=== PATIENT | male | born 1940 | race Caucasian/White ===

== ENCOUNTER → 2016-10-31 | Outpatient (CLI) | payer OTHER, MEDICARE ==
[2016-10-31 12:38] LABS: BASO % 0.4 %; BASO ABS # 0.02 K/uL (0-0.2); COMPLETE YES; EOS % 1.1 %; HEMATOCRIT 44.9 % (42-52); IG% 0.4 %; LYMPH % 30.3 %; LYMPH ABS # 1.35 K/uL (1.2-3.4); MEAN CELL VOLUME 91.3 fL (80-100); MEAN CORPUSCULAR HEMOGLOBIN 31.9 pg (25-34); MEAN PLATELET VOLUME 10.1 fL (7.4-10.4); MONO % 13.5 %; NEUT % 54.3 %; PLATELET COUNT 162 K/uL (130-400); RED BLOOD COUNT 4.92 M/uL (4.7-6.1); WHITE BLOOD COUNT 4.46 K/uL (4.8-10.8)
[2016-10-31 12:45] LABS: ALT/SGPT 21 U/L (12-78); BLOOD UREA NITROGEN 18 mg/dl (7-18); BUN/CREATININE RATIO 16.5 (10-20); CALCIUM 8.7 mg/dl (8.5-10.1); CARBON DIOXIDE 27 mmol/L (21-32); CHLORIDE 107 mmol/L (98-107); CHOLESTEROL 184 mg/dl (0-200); GLUCOSE 89 mg/dl (70-99); POTASSIUM 4.6 mmol/L (3.5-5.1); SODIUM 142 mmol/L (136-145)
[2016-10-31 12:48] LABS: ALKALINE PHOSPHATASE 60 U/L (45-117); AST/SGOT 19 U/L (15-37); CHOLESTEROL/HDL RATIO 3.3; HDL CHOLESTEROL 56 mg/dl; LDL CHOLESTEROL CALCULATED 113 mg/dl; TRIGLYCERIDES 74 mg/dl (0-150); VERY LOW DENSITY LIPOPROT CALC 15 mg/dl
== END | disposition home or self-care (01) ==
LOC: C.LABBFT 08:00
PROVIDERS: ATTEND Nurse Practitioner Family
DX: I65.29 Occlusion and stenosis of unspecified carotid artery (principal); I10 Essential (primary) hypertension; I34.0 Nonrheumatic mitral (valve) insufficiency; E78.5 Hyperlipidemia, unspecified; I07.1 Rheumatic tricuspid insufficiency

== ENCOUNTER → 2017-04-28 | Outpatient (CLI) | payer OTHER, MEDICARE ==
[2017-04-28 12:37] LABS: BLOOD UREA NITROGEN 21 mg/dl (7-18); BUN/CREATININE RATIO 18.9 (10-20); CALCIUM 9.1 mg/dl (8.5-10.1); CARBON DIOXIDE 30 mmol/L (21-32); CHLORIDE 105 mmol/L (98-107); CHOLESTEROL 208 mg/dl (0-200); GLUCOSE 85 mg/dl (70-99); POTASSIUM 4.3 mmol/L (3.5-5.1); SODIUM 139 mmol/L (136-145)
[2017-04-28 12:40] LABS: CHOLESTEROL/HDL RATIO 4.3; HDL CHOLESTEROL 48 mg/dl; LDL CHOLESTEROL CALCULATED 143 mg/dl; TRIGLYCERIDES 85 mg/dl (0-150); VERY LOW DENSITY LIPOPROT CALC 17 mg/dl
== END | disposition home or self-care (01) ==
LOC: C.LABBFT 08:22
PROVIDERS: ATTEND Nurse Practitioner Family
DX: I65.29 Occlusion and stenosis of unspecified carotid artery (principal); I10 Essential (primary) hypertension; E78.5 Hyperlipidemia, unspecified; I34.0 Nonrheumatic mitral (valve) insufficiency; I07.1 Rheumatic tricuspid insufficiency

== ENCOUNTER → 2018-05-04 | Outpatient (CLI) | payer OTHER, MEDICARE ==
[2018-05-04 13:39] LABS: ALBUMIN 3.5 gm/dl (3.4-5.0); ALKALINE PHOSPHATASE 55 U/L (45-117); ALT/SGPT 24 U/L (12-78); AST/SGOT 23 U/L (15-37); BLOOD UREA NITROGEN 20 mg/dl (7-18); CALCIUM 8.7 mg/dl (8.5-10.1); CARBON DIOXIDE 27 mmol/L (21-32); CHOLESTEROL 176 mg/dl (0-200); CREATININE 1.13 mg/dl (0.60-1.40); GLUCOSE 89 mg/dl (70-99); LDL CHOLESTEROL CALCULATED 116 mg/dl; POTASSIUM 4.5 mmol/L (3.5-5.1); SODIUM 140 mmol/L (136-145); TOTAL PROTEIN 6.8 gm/dl (6.4-8.2)
== END | disposition home or self-care (01) ==
LOC: C.LABBFT 07:33
PROVIDERS: ATTEND Nurse Practitioner Family
DX: I65.29 Occlusion and stenosis of unspecified carotid artery (principal); I10 Essential (primary) hypertension; E78.5 Hyperlipidemia, unspecified; I38 Endocarditis, valve unspecified

== ENCOUNTER 2023-12-02 19:23 | Inpatient (IN) ==
[2023-12-02] MEDS: DEXAMETHASONE SOD INJ 4 MG/ML VIAL IV STA (21:01)
[2023-12-02 21:12] LABS: iSTAT Creatinine 1.2 mg/dl (0.6-1.3); iSTAT Hemoglobin 15.6 g/dl (14.0-18.0); iSTAT Ionized Calcium 1.19 mmol/l (1.12-1.32); iSTAT Potassium 4.1 mmol/L (3.3-5.0)
[2023-12-02 21:23] LABS: Base Excess VBG 0.5 mEq/L; HCO3 VBG 25 mmol/L; Oxygen Saturation VBG 77.8 %; PCO2 VBG 41 mmHg (38-50); PO2 VBG 43 mmHg
[2023-12-02] MEDS: OPTIRAY 350 500ml IV ONE (21:23)
[2023-12-02 21:46] LABS: Basophils # (auto) 0.02 K/uL (0.00-0.20); Basophils % (auto) 0.2 %; Hematocrit (blood only) 44.6 % (42.0-52.0); Hemoglobin 15.2 g/dl (14.0-18.0); Immature Granulocytes # (auto) 0.04 K/uL (0.01-0.20); Immature Granulocytes % (auto) 0.4 %; Lymphocytes # (auto) 0.59 K/uL (1.20-3.40); Lymphocytes % (auto) 6.1 %; Mean Corpuscular Hemoglobin 32.1 pg (25.0-34.0); Mean Corpuscular Hgb Conc 34.1 g/dL (32.0-36.0); Mean Corpuscular Volume 94.3 fL (80.0-100.0); Mean Platelet Volume 10.4 fL (9.4-12.4); Monocytes # (auto) 0.83 K/uL (0.11-0.59); Monocytes % (auto) 8.6 %; Neutrophils # (auto) 8.14 K/uL (1.40-6.50); Neutrophils % (auto) 84.7 %; Platelet Count 118 K/uL (130-400); RDW Coefficient of Variation 12.6 % (11.5-14.5); RDW Standard Deviation 43.7 fL (36.4-46.3); Red Blood Count 4.73 M/uL (4.70-6.10); White Blood Count 9.62 K/ul (4.8-10.8)
[2023-12-02 22:02] LABS: Albumin Globulin Ratio 1.4 (0.9-2); Albumin Level 4.2 gm/dl (3.4-5.0); Bilirubin,Total 0.5 mg/dl (0.2-1.0); Calcium 9.3 mg/dl (8.6-10.3); Creatinine Clr Calc Pharmacy 42.6 ml/min; Est GFR (African American) 71.6 ml/min; Est GFR (Non-African American) 61.8 ml/min; Globulin 3.1 gm/dl (2.5-4.0); Potassium 4.3 mmol/L (3.5-5.1); Total Protein 7.3 gm/dl (6.0-8.3)
[2023-12-02 22:10] LABS: Troponin I High Sensitivity 13.6 pg/ml (0-20)
[2023-12-02 22:14] LABS: Partial Thromboplastin Ratio 1.1; Partial Thromboplastin Time 30 Seconds (21-31); Prothrombin Time 10.6 Seconds (9.0-12.0)
--- NOTE | 2023-12-02 22:19 | CT Scan Report ---
CT angio chest PE protocol CLINICAL HISTORY: ro PE TECHNIQUE: Multidetector row helical CT of the chest was performed with angiographic protocol. Mendez l and sagittal reformations were obtained. Coronal and sagittal MIPS were obtained from the axial dafne a set and were submitted for review. Automated dose lowering techniques and/or adjustment according to patient size were utilized for this exam. CT DOSE: 552.26 mGy.cm Comparison: Comparison is made to chest radiograph 12/02/2023 FINDINGS: Lungs and pleura: Bronchiectasis and emphysema are seen. Bronchial wall thickening is seen in the brionna ateral lower lungs and there is an airspace opacity favoring the lower lungs. Heart and pericardium: Cardiomegaly is seen with biatrial enlargement. Vessels: No evidence of pulmonary embolism. Mediastinum and vilma: Subcentimeter lymph nodes are seen. Subcarinal lymph node measures up to 11 mm in diameter. Chest wall and lower neck: Unremarkable. Abdomen: A hiatal hernia is seen. Bones: Degenerative changes in the thoracic spine. IMPRESSION: Bronchial wall thickening and bilateral lower lung predominant airspace opacities are seen superimpos ed on emphysema. This likely represents pneumonia and/or aspiration. No evidence of pulmonary embolus . ACT 112: Negative or not required by law. Electronically signed by: Bebeto Hendricks M.D. 12/02/2023 10:17 PM
--- NOTE | 2023-12-02 22:58 | Emergency Department Note ---
History of Present Illness General Chief Complaint: Flu Like Symptoms Stated Complaint: COUGH, COVID + SINCE THURSDAY Time Seen by Provider: 12/02/23 20:35 History of Present Illness Provider Complaint: shortness of breath and cough Onset (ago): day(s) (2) Consistency/Duration: + progressively worsening Relieved By: + nothing Exacerbated By: + exertion and + coughing Context: + recent illness (Diagnosed with COVID today) Associated symptoms: + sputum production and + chest congestion; no chest pain, no fever, no orthopnea, no lower extremity pain, no paresthesias, no palpitations, no hemoptysis, no nausea/vomiting, no abdominal pain or no rash Treatment prior to arrival: none Related Data Home oxygen amount: none Home Medications Medication Instructions Recorded Confirmed Type omega-3 acid ethyl esters 1 gram 1 cap PO QPM 04/01/19 12/02/23 History capsule cholecalciferol (vitamin D3) 25 1,000 units PO QPM 05/18/19 12/02/23 History mcg (1,000 unit) tablet coenzyme Q10 400 mg capsule 1,200 mg PO QPM 05/18/19 12/02/23 History rosuvastatin 5 mg tablet 5 mg PO QPM #90 tabs 06/15/23 12/02/23 Rx lisinopril 20 mg tablet 20 mg PO PM 11/29/23 12/02/23 History tamsulosin 0.4 mg capsule 0.4 mg PO PM 11/29/23 12/02/23 History aspirin 81 mg tablet,delayed 81 mg PO DAILY 12/02/23 12/02/23 History release benzonatate 200 mg capsule 200 mg PO TID PRN cough #30 caps 12/02/23 12/02/23 Rx nirmatrelvir 300 mg (150 mg See Rx Instructions PO .COMPLEX 12/02/23 12/02/23 Rx x2)-ritonavir 100 mg tablet,dose #30 tabs pack (Paxlovid) Allergies Allergy/AdvReac Type Severity Reaction Status Date / Time No Known Allergies Allergy Verified 12/02/23 22:30 Past Med/Surg History Medical History Hyperlipidemia Hypertension Surgical History S/P bilateral cataract extraction Hx of cataract extraction left History of colonoscopy H/O inguinal hernia repair Hx of tonsillectomy Family History Father Carotid artery stenosis Sister Asthma Mother Ovarian cancer Other No family history of adverse response to anesthesia Denies family history of Prostate cancer Myocardial infarction Breast cancer Colorectal cancer Social History Smoking Status: Never smoker Tobacco Type: Cigarettes Age Started Using Tobacco: 16; Age Quit Using Tobacco: 23; packs per day: 0.5; Second Hand Exposure: No; Do You Dip or Chew Tobacco: No; Hx Alcohol Use: No Hx Substance Use: No Preferred Language: Filipino Communication Ability: Effective Visual Impairment: No Limitations Hearing Ability: Normal Student Records Coordinator Required: No Beliefs That Will Affect Care: None marital status: Current Living Situation: Spouse and Family current occupational status: retired How many Children do You have: 2 Feels Safe at Home: Yes Childhood Exposure to Second-Hand Smoke: Yes Diet: regular Diet Comment: regular caffeine: Yes during the past year weight has: remained stable Dental Care, Regularly: Yes Physical Activity Frequency: Daily Seatbelt Use: always Sunscreen Use: No Do you think of yourself as: straight/heterosexual Assistive Devices: Glasses Physical Exam 2 Vital Signs: Vital Signs - 24 hr 12/02/23 19:30 12/02/23 19:33 12/02/23 20:54 Temperature 36.8 C Temperature Source Temporal Artery Sc an Pulse Rate 89 Pulse Rate [Apical ] 78 Respiratory Rate 17 24 Respiratory Depth Normal Blood Pressure 205/37 H Blood Pressure [Ri ght Arm] 178/94 H Blood Pressure Yocasta n 93 Blood Pressure Yocasta n [Right Arm] 122 Blood Pressure Pos ition [Right Arm] Semi-fowlers Pulse Oximetry 89 L 89 L 98 Oxygen Delivery Me thod Room Air Room Air Nasal Can nula Nasal Cannula Oxygen Flow Rate 3 Sepsis Recent Feve r Within 48 Hours No Sepsis New/Unexpla ined Change in Men marimar Status No Sepsis Action Take n by Nursing No Action Required Oxygen Flow Rate - Titration 3 Pulse Oximetry Pos t Tiitration 93 12/02/23 21:11 12/02/23 22:00 Temperature Temperature Source Pulse Rate 79 Pulse Rate [Apical ] 88 Respiratory Rate 22 Respiratory Depth Normal Blood Pressure Blood Pressure [Ri ght Arm] 175/88 H Blood Pressure Yocasta n Blood Pressure Yocasta n [Right Arm] 117 Blood Pressure Pos ition [Right Arm] Semi-fowlers Pulse Oximetry 92 Oxygen Delivery Me thod Nasal Cannula Oxygen Flow Rate 4 Sepsis Recent Feve r Within 48 Hours Sepsis New/Unexpla ined Change in Men marimar Status Sepsis Action Take n by Nursing Oxygen Flow Rate - Titration Pulse Oximetry Pos t Tiitration Physical Exam: Physical Exam GENERAL: oriented to person, place, and time. appears well-developed and well- nourished. HENT: Exam performed. - Head: Normocephalic and atraumatic. EYES: Conjunctivae and EOM are normal. Right eye exhibits no discharge. Left eye exhibits no discharge. No scleral icterus. NECK: Normal range of motion. Neck supple. No JVD present. CV: Normal rate, regular rhythm, normal heart sounds and intact distal pulses. There is no peripheral edema. Palpable radial pulses bue. PULM/CHEST: Rhonchi bilaterally. ABD: The abdomen is soft. There is no tenderness. NEURO: Motor and sensation grossly intact. SKIN: Skin is warm and dry. He is not diaphoretic. PSYCH: normal mood and affect. Behavior is normal. Judgment and thought content normal. Course Course 2034: The patient was evaluated in room B8. A complete history and physical exam was performed Cardiac monitoring: An order was placed for continuous cardiac monitoring. The monitor shows a rate of 90 with sinus rhythm interpreted by me Patient found to be hypoxic on room air. Supplemental oxygen via nasal cannula was applied to the patient which improved the patient's oxygen saturation. Patient will be treated with Decadron 6 mg IV push for hypoxia with COVID. 2221: Vital signs stable on supplemental oxygen. Labs within normal limits. Imaging shows no pulmonary embolus. Patient will be admitted for hypoxia and COVID to the [facility] hospitalist team. Administered Medications Discontinued Medications Dexamethasone (Dexamethasone Sod Inj 4 Mg/Ml Vial) 6 mg IV NOW STA Stop: 12/02/23 20:45 Last Admin: 12/02/23 21:01 Dose: 6 mg Documented By: VICK Ioversol (Optiray 350 500ml) 108 ml IV ONCE ONE Stop: 12/02/23 21:24 Last Admin: 12/02/23 21:23 Dose: 108 ml Documented By: GENIE Medical Decision Making Laboratory Data Attestation: I reviewed the patient's lab results. 12/02/23 20:56 12/02/23 20:56 Lab Results 12/02/23 12/02/23 Range/Units 20:56 21:00 WBC 9.62 (4.8-10.8) K/ul RBC 4.73 (4.70-6.10) M/uL Hgb 15.2 (14.0-18.0) g/dl POC Hgb 15.6 (14.0-18.0) g/dl Hct 44.6 (42.0-52.0) % POC Hct 46 (42-52) % MCV 94.3 (80.0-100.0) fL MCH 32.1 (25.0-34.0) pg MCHC 34.1 (32.0-36.0) g/dL RDW Std Deviation 43.7 (36.4-46.3) fL RDW Coeff of Luis 12.6 (11.5-14.5) % Plt Count 118 L (130-400) K/uL MPV 10.4 (9.4-12.4) fL Immature Gran % (Auto) 0.4 % Neut % (Auto) 84.7 % Lymph % (Auto) 6.1 % Eaton % (Auto) 8.6 % Eos % (Auto) 0.0 % Baso % (Auto) 0.2 % Neut # (Auto) 8.14 H (1.40-6.50) K/uL Lymph # (Auto) 0.59 L (1.20-3.40) K/uL Eaton # (Auto) 0.83 H (0.11-0.59) K/uL Eos # (Auto) 0.00 (0.00-0.50) K/uL Baso # (Auto) 0.02 (0.00-0.20) K/uL Immature Gran # (Auto) 0.04 (0.01-0.20) K/uL PT 10.6 (9.0-12.0) Seconds INR 1.0 (0.9-1.1) APTT 30 (21-31) Seconds PTT Ratio 1.1 VBG pH 7.40 (7.36-7.41) VBG pCO2 41 (38-50) mmHg VBG pO2 43 mmHg VBG HCO3 25 mmol/L VBG O2 Saturation 77.8 % VBG Base Excess 0.5 mEq/L POC Sodium 139 (135-144) mmol/L Sodium 136 (136-145) mmol/L POC Potassium 4.1 (3.3-5.0) mmol/L Potassium 4.3 (3.5-5.1) mmol/L POC Chloride 101 (101-112) mmol/L Chloride 102 (98-107) mmol/L Carbon Dioxide 27 (21-32) mmol/L POC Total CO2 30 (24-31) mmol/L Anion Gap 7 (3-11) POC Anion Gap 14.0 L (16-25) mmol/L POC BUN 21 H (7-18) mg/dl BUN 22 (6-23) mg/dl Creatinine 1.10 (0.6-1.4) mg/dl POC Creatinine 1.2 (0.6-1.3) mg/dl Est Cr Clr Drug Dosing 42.6 ml/min Est GFR ( Amer) 71.6 ml/min Est GFR (Non-Af Amer) 61.8 ml/min BUN/Creatinine Ratio 20.0 (10-20) Glucose 148 H (70-99(Fasting)) mg/dl POC Glucose (other) 153 H (70-99) mg/dl Calcium 9.3 (8.6-10.3) mg/dl POC Ioniz Calcium Patricia 1.19 (1.12-1.32) mmol/l Total Bilirubin 0.5 (0.2-1.0) mg/dl AST 27 (13-39) U/L ALT 16 (7-52) U/L Alkaline Phosphatase 52 (34-104) U/L Troponin I High Sens 13.6 (0-20) pg/ml Total Protein 7.3 (6.0-8.3) gm/dl Albumin 4.2 (3.4-5.0) gm/dl Globulin 3.1 (2.5-4.0) gm/dl Albumin/Globulin Ratio 1.4 (0.9-2) Imaging Data Attestation: I personally reviewed and interpreted this imaging study as follows: My Impression: Chest x-ray negative. Airway clear. No pneumothorax. No consolidation. No cardiomegaly or cephalization.. No free air under the diaphragm. No fractures of the skeletal structures. Radiologist's Impression: Chest CTA 12/02/23 20:43 CT angio chest PE protocol CLINICAL HISTORY: ro PE TECHNIQUE: Multidetector row helical CT of the chest was performed with angiographic protocol. Coronal and sagittal reformations were obtained. Coronal and sagittal MIPS were obtained from the axial data set and were submitted for review. Automated dose lowering techniques and/or adjustment according to patient size were utilized for this exam. CT DOSE: 552.26 mGy.cm Comparison: Comparison is made to chest radiograph 12/02/2023 FINDINGS: Lungs and pleura: Bronchiectasis and emphysema are seen. Bronchial wall thickening is seen in the bilateral lower lungs and there is an airspace opacity favoring the lower lungs. Heart and pericardium: Cardiomegaly is seen with biatrial enlargement. Vessels: No evidence of pulmonary embolism. Mediastinum and vilma: Subcentimeter lymph nodes are seen. Subcarinal lymph node measures up to 11 mm in diameter. Chest wall and lower neck: Unremarkable. Abdomen: A hiatal hernia is seen. Bones: Degenerative changes in the thoracic spine. IMPRESSION: Bronchial wall thickening and bilateral lower lung predominant airspace opacities are seen superimposed on emphysema. This likely represents pneumonia and/or aspiration. No evidence of pulmonary embolus. ACT 112: Negative or not required by law. Electronically signed by: Bebeto Hendricks M.D. 12/02/2023 10:17 PM ECG Data Attestation: I personally reviewed and interpreted this ECG as follows: Interpretation: Sinus rhythm with a rate of 78. NE QRS QTc intervals within normal limits. No ST elevation or ST depression. [facility] Narrative 2034: The patient was evaluated in room B8. A complete history and physical exam was performed Cardiac monitoring: An order was placed for continuous cardiac monitoring. The monitor shows a rate of 90 with sinus rhythm interpreted by me Patient found to be hypoxic on room air. Supplemental oxygen via nasal cannula was applied to the patient which improved the patient's oxygen saturation. Patient will be treated with Decadron 6 mg IV push for hypoxia with COVID. 2221: Vital signs stable on supplemental oxygen. Labs within normal limits. Imaging shows no pulmonary embolus. [facility]. Impression & Plan Hypoxia, COVID-19 Critical Care Time Critical Care Time: Yes Total Critical Care Time: 38 I have personally spent greater than 38 minutes of critical care time in the direct management of this patient. This includes bedside care, interpretation of diagnostic studies, and testing, discussion with consultants, patient, and family members, and other required patient management activities. This 38 minutes is in excess of all separately billable procedures. Discharge Plan Visit Data Chief Complaint: Flu Like Symptoms Stated Complaint: COUGH, COVID + SINCE THURSDAY ED Provider: Huang Foster Discharge Problem: Hypoxia, COVID-19 Patient Disposition: Admitted As Inpatient Forms Stand Alone Forms: [facility] Prescriptions Prescriptions: No Action omega-3 acid ethyl esters 1 gram capsule 1 cap PO QPM coenzyme Q10 400 mg capsule 1,200 mg PO QPM cholecalciferol (vitamin D3) 1,000 unit (25 mcg) tablet 1,000 units PO QPM rosuvastatin 5 mg tablet 5 mg PO QPM Qty: 90 3RF Paxlovid 300 mg (150 mg x 2)-100 mg tablets,dose pack See Rx Instructions PO .COMPLEX Qty: 30 0RF Rx Instructions: ORDERED 12/02/23. take TWO 150 mg tablets of nirmatrelvir with ONE 100 mg tablet of ritonavir twice daily for 5 days PO benzonatate 200 mg capsule 200 mg PO TID PRN (Reason: cough) Qty: 30 0RF lisinopril 20 mg tablet 20 mg PO PM tamsulosin 0.4 mg capsule 0.4 mg PO PM aspirin 81 mg Tablet,Delayed Release (Dr/Ec) 81 mg PO DAILY Referrals Referrals: Efren Mckeon III, CRNP [Primary Care Provider] -
--- NOTE | 2023-12-02 23:04 | History & Physical Report ---
Date of Service December 02, 2023 Assessment & Plan (1) COVID-19: Plan: - S/p 6mg Decadron in ED, plan to continue daily - Will start Remdesivir - COVID precautions - concern on CTA for superimposed bacterial pneumonia- will cover for community acquired PNA with ceftriaxone/azithromycin. Will order procal - Duoneb x 1, albuterol inhaler prn - Tessalon Perles prn, Mucinex - supplemental oxygen, wean as tolerated (2) Hypoxia: Plan: - Hypoxia secondary to COVID-19 with concern for superimposed bacterial PNA, plan as per above (3) BPH with urinary obstruction: Plan: - hold tamsulosin 3 days after dose of Paxlovid; can resume 12/05 (4) Hyperlipidemia: Plan: - hold statin 3 days after dose of Paxlovid; can resume 12/05 (5) Hypertension: Plan: - continue lisinopril (6) Arteriosclerosis of carotid artery: Plan: - continue aspirin Plan Code: Full Diet: Regular VTE Prophylaxis: Lovenox History of Present Illness Primary Care Provider: 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 Symptoms started 4 days ago; productive cough, sore throat, body aches. Denies dyspnea, chest pain, fever/chills. Was seen at PCP this afternoon, tested positive for COVID-19, started on Paxlovid which he took this afternoon. Son has similar symptoms. 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 Increased coughing, concern for dyspnea this afternoon which prompted him to come to the ED. Found to be hypoxic to high 80s on arrival, now stable on 4L NC. Was given 6mg Decadron in the ED. CTA chest with emphysema, and concern for superimposed PNA. Allergies Allergy/AdvReac Type Severity Reaction Status Date / Time No Known Allergies Allergy Verified 12/02/23 22:30 Home Medications Medication Instructions Recorded Confirmed Type omega-3 acid ethyl esters 1 gram 1 cap PO QPM 04/01/19 12/02/23 History capsule cholecalciferol (vitamin D3) 25 1,000 units PO QPM 05/18/19 12/02/23 History mcg (1,000 unit) tablet coenzyme Q10 400 mg capsule 1,200 mg PO QPM 05/18/19 12/02/23 History rosuvastatin 5 mg tablet 5 mg PO QPM #90 tabs 06/15/23 12/02/23 Rx lisinopril 20 mg tablet 20 mg PO PM 11/29/23 12/02/23 History tamsulosin 0.4 mg capsule 0.4 mg PO PM 11/29/23 12/02/23 History aspirin 81 mg tablet,delayed 81 mg PO DAILY 12/02/23 12/02/23 History release benzonatate 200 mg capsule 200 mg PO TID PRN cough #30 caps 12/02/23 12/02/23 Rx nirmatrelvir 300 mg (150 mg See Rx Instructions PO .COMPLEX 12/02/23 12/02/23 Rx x2)-ritonavir 100 mg tablet,dose #30 tabs pack (Paxlovid) Past Med/Surg History Medical History Hyperlipidemia Hypertension Surgical History S/P bilateral cataract extraction Hx of cataract extraction left History of colonoscopy H/O inguinal hernia repair Hx of tonsillectomy Family History Father Carotid artery stenosis Sister Asthma Mother Ovarian cancer Other No family history of adverse response to anesthesia Denies family history of Prostate cancer Myocardial infarction Breast cancer Colorectal cancer Social History Smoking Status: Former smoker Tobacco Type: Cigarettes Age Started Using Tobacco: 16; Age Quit Using Tobacco: 23; packs per day: 0.5; Cigarettes Per Day: 5; Smoking End Date: 1969; Second Hand Exposure: No; Do You Dip or Chew Tobacco: No; Hx Alcohol Use: No Hx Substance Use: No Preferred Language: Somali Communication Ability: Effective Visual Impairment: No Limitations Hearing Ability: Normal Valet Parking Attendant Required: No Beliefs That Will Affect Care: None marital status: Current Living Situation: Spouse and Family Current Living Situation Comment: Lives at home with . He is her primary caregiver. Son assist. current occupational status: retired How many Children do You have: 2 Other Information That Helps Us Care for You: No Feels Safe at Home: Yes Safety Concerns: Feels Safe At This Time Childhood Exposure to Second-Hand Smoke: Yes Diet: regular Diet Comment: regular caffeine: Yes during the past year weight has: remained stable Dental Care, Regularly: Yes Physical Activity Frequency: Daily Seatbelt Use: always Sunscreen Use: No Do you think of yourself as: straight/heterosexual Assistive Devices: Glasses Review of Systems Review of Systems: As per above Physical Exam Physical Exam: Constitutional: well-appearing, no acute distress HEENT: NCAT, no conjunctival injection CV: regular rhythm, no murmur appreciated, extremities well-perfused, trace LE edema Resp: + wheezes with rales/rhonchi in lung bases, + increased work of breathing GI: soft, nondistended, nontender, BS normoactive MSK: no gross deformities appreciated Skin: warm, dry, no rash appreciated Neuro: alert, oriented, no focal neurologic deficit appreciated Results & Data Results & Data Vital Signs (Past 12 Hours) Vital Signs Temp Pulse Pulse Resp BP BP Pulse Ox 12/02/23 22:00 88 22 175/88 H 92 12/02/23 21:11 79 12/02/23 20:54 78 24 178/94 H 98 12/02/23 19:33 89 L 12/02/23 19:30 36.8 C 89 17 205/37 H 89 L O2 Del Method O2 Flow Rate 12/02/23 22:00 Nasal Cannula 4 12/02/23 21:11 12/02/23 20:54 Nasal Cannula 3 12/02/23 19:33 Room Air, Nasal Cannula 12/02/23 19:30 Room Air Supervising Physician Co-Signing Physician Notes Attending addendum: I have physically seen this patient, have supervised the medical residents activities, and agree with the H&P unless as otherwise noted. Assessment and Plan: Acute respiratory failure with hypoxia/COVID-19 infection/secondary bacterial pneumonia/COPD exacerbation- 87% on room air Received Decadron 6 mg IV from the ED Nasal cannula oxygen, titrate to keep pulse ox 92-94% Patient had taken 1 dose of Paxlovid in the outpatient setting Remdesivir IV per protocol Ceftriaxone/azithromycin IV for secondary bacterial process with bibasilar infiltrates Tessalon Perles 100 mg p.o. 3 times daily as needed Guaifenesin extended release 600 mg p.o. twice daily Albuterol HFA 2 puffs 4 times daily, and every 2 hours as needed DuoNebs available as backup COVID-19 precautions BPH with LUTS- Restriction of tamsulosin use as noted Hypertension- Continue lisinopril Resident Activity Tracking Resident Involvement: Resident Care Provided Care Provided: Adult [facility] Medicine
[2023-12-02] MEDS ORDERED: POLYETHYLENE (MIRALAX) 17 GM PACK PO PRN (23:24)
[2023-12-02] MEDS ORDERED: ACETAMINOPHEN 325 MG TAB PO PRN (23:24)
[2023-12-02] MEDS ORDERED: ALBUTEROL HFA 8 GM INHALER INH PRN (23:39)
[2023-12-02] MEDS: ALBUT/IPRATROP 3MG/0.5MG NEB 3 ML VIAL NEB ONE (23:54)
[2023-12-03] MEDS ORDERED: BENZONATATE 100 MG CAPSULE PO PRN (00:12)
[2023-12-03] MEDS: cefTRIAXone SODIUM 1,000 MG in DEXTROSE 5 % MINI-B 50 ML IV SCH (00:38)
[2023-12-03] MEDS: lisinopril 20 MG TAB PO SCH (00:57)
[2023-12-03] MEDS: AZITHROMYCIN 500 MG in DEXTROSE 5% 250 ML IV SCH (01:04)
[2023-12-03] MEDS: REMDESIVIR 200 MG in SODIUM CHLORIDE 0.9% 210 ML IV STA (01:04)
--- NOTE | 2023-12-03 04:03 | Billing Data ---
Date of Service December 03, 2023 Coding Level of Care Code 29602 INT INP/OBS CARE
--- NOTE | 2023-12-03 06:50 | XRay Report ---
SINGLE VIEW CHEST CLINICAL HISTORY: Atypical chest pain FINDINGS: An AP upright chest radiograph is obtained. No prior studies are available for comparison a t the time of dictation. The heart is mildly enlarged noting atherosclerotic calcification of the tho racic aorta. The pulmonary vasculature is noncongested. Emphysematous change is observed. There are m ild bibasilar airspace opacities. No large pleural effusion or pneumothorax is seen. The skeletal str uctures are osteopenic. The degenerative change is noted in the shoulders and spine. The bony thorax is grossly intact. IMPRESSION: 1. Cardiomegaly and emphysema. 2. Bibasilar airspace opacities could represent scarring/atelectasis versus a mild pneumonitis. Clini deborah correlation will be required and radiographic follow-up to resolution is recommended. ACT 112: Negative or not required by law. Electronically signed by: Wilfredo Hood M.D. 12/03/2023 6:48 AM
[2023-12-03 07:29] LABS: Albumin Globulin Ratio 1.3 (0.9-2); Albumin Level 3.7 gm/dl (3.4-5.0); BUN Creatinine Ratio 17.9 (10-20); Bilirubin,Total 0.5 mg/dl (0.2-1.0); Calcium 8.9 mg/dl (8.6-10.3); Creatinine Clr Calc Pharmacy 41.8 ml/min; Est GFR (Non-African American) 60.4 ml/min; Globulin 2.9 gm/dl (2.5-4.0); Magnesium 1.7 mg/dl (1.7-2.4); Potassium 4.2 mmol/L (3.5-5.1); Total Protein 6.6 gm/dl (6.0-8.3)
[2023-12-03] MEDS: dexAMETHasone 6 MG in SYRINGE 0 ML IV SCH (07:49)
[2023-12-03] MEDS: guaiFENesin 600 MG TABCR PO SCH (07:49)
[2023-12-03] MEDS: ENOXAPARIN INJ 40 MG/0.4 ML SYR SQ SCH (07:49)
[2023-12-03] MEDS: ASPIRIN 81 MG ECTAB PO SCH (07:49)
[2023-12-03 08:13] LABS: Hematocrit (blood only) 42.6 % (42.0-52.0); Hemoglobin 14.7 g/dl (14.0-18.0); Mean Corpuscular Hemoglobin 32.5 pg (25.0-34.0); Mean Corpuscular Hgb Conc 34.5 g/dL (32.0-36.0); Mean Platelet Volume 10.1 fL (9.4-12.4); Platelet Count 105 K/uL (130-400); RDW Coefficient of Variation 12.6 % (11.5-14.5); RDW Standard Deviation 43.6 fL (36.4-46.3); Red Blood Count 4.53 M/uL (4.70-6.10)
[2023-12-03 08:14] LABS: Basophils # (auto) 0.02 K/uL (0.00-0.20); Basophils % (auto) 0.2 %; Immature Granulocytes # (auto) 0.03 K/uL (0.01-0.20); Immature Granulocytes % (auto) 0.3 %; Lymphocytes # (auto) 0.48 K/uL (1.20-3.40); Lymphocytes % (auto) 4.8 %; Monocytes # (auto) 0.51 K/uL (0.11-0.59); Neutrophils # (auto) 9.06 K/uL (1.40-6.50); Neutrophils % (auto) 89.7 %
--- NOTE | 2023-12-03 09:30 | Electrocardiogram Report ---
Test Reason : Blood Pressure : / mmHG Vent. Rate : 078 BPM Atrial Rate : 078 BPM P-R Int : 136 ms QRS Dur : 082 ms QT Int : 382 ms P-R-T Axes : 043 -64 047 degrees QTc Int : 435 ms Normal sinus rhythm Left anterior fascicular block Incomplete right bundle branch block Nonspecific ST abnormality Abnormal ECG When compared with ECG of 17-APR-2005 09:53, Anterior infarct is now Present Nonspecific T wave abnormality now evident in Anterior leads Confirmed by Russel William ([id number]) on 12/03/2023 9:30:43 AM Referred By: REFERRED SELF Confirmed By:Piero William
--- NOTE | 2023-12-03 18:02 | Hospitalist Progress Note ---
Date of Service December 03, 2023 Assessment & Plan (1) COVID-19: Plan: Continue dexamethasone and remdesivir Procalcitonin negative, can discontinue ceftriaxone but will continue azithromycin for atypical coverage COVID isolation precautions Aim O2 sats > 90% (2) Hypoxia: Plan: Hypoxia secondary to COVID-19 with concern for superimposed bacterial PNA, plan as per above (3) BPH with urinary obstruction: Plan: hold tamsulosin 3 days after dose of Paxlovid; can resume 12/05 Monitor for urine retention (4) Hyperlipidemia: Plan: hold statin 3 days after dose of Paxlovid; can resume 12/05 (5) Hypertension: Plan: continue lisinopril (6) Arteriosclerosis of carotid artery: Plan: Continue aspirin Plan VTE Prophylaxis: Lovenox Diet: Regular Disposition - stable for transfer to med/surg, no abnormal rhythms on telemetry Admission and Anticipated Discharge Date Admission Date: December 02, 2023 Subjective Reports significant improvement from admission. 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 Ongoing shortness of breath on exertion with frequent coughing. No fevers. No diarrhea. Review of Systems Review of Systems: All systems reviewed & are unremarkable except as noted in HPI & below Physical Exam Constitutional: WD/WN, vitals as above Respiratory: normal respiratory effort; no respiratory distress Auscult ation: + crackles (bibasal) Cardiovascular: RRR, no murmur, no edema Gastrointestinal (Abdomen): normal bowel sounds, soft, nontender, no hepatosplenomegaly Musculoskeletal: no cyanosis or clubbing, extremities motor strength 5/5 Skin: no rashes, warm and dry Psychiatric: A+Ox3, euthymic affect Results & Data Results & Data Vital Signs (Past 12 Hours) Vital Signs Temp Pulse Resp BP Pulse Ox O2 Del Method O2 Flow Rate 12/03/23 14:11 36.5 C 63 22 140/71 94 Nasal Cannula 2 12/03/23 12:23 Nasal Cannula 2 12/03/23 11:41 36.8 C 72 18 143/77 H 96 Nasal Cannula 2 12/03/23 08:23 36.9 C 64 19 153/88 H 95 Nasal Cannula 2 PG Care Time/CCT Total # of Minutes Spent Total Time Spent with Patient: Total time spent is greater than 50% in coordination of care (as documented) at patient's floor/unit and/or counseling patient: Coding Level of Care Code 13776 SUB INP/OBS CARE MIN Diagnoses COVID-19 U07.1 Hypoxia R09.02 BPH with urinary obstruction N40.1; N13.8 Hyperlipidemia E78.5 Hypertension I10 Arteriosclerosis of carotid artery I65.29
[2023-12-03] MEDS: REMDESIVIR 100 MG in SODIUM CHLORIDE 0.9% 230 ML IV SCH (21:08)
[2023-12-03] MEDS: CHOLECALCIFEROL 25 MCG (1000 UNITS) TAB PO SCH (21:16)
[2023-12-04 06:35] LABS: BUN Creatinine Ratio 31.4 (10-20); Calcium 8.6 mg/dl (8.6-10.3); Creatinine Clr Calc Pharmacy 39.7 ml/min; Est GFR (African American) 65.7 ml/min; Est GFR (Non-African American) 56.7 ml/min; Potassium 4.1 mmol/L (3.5-5.1)
[2023-12-04 06:36] LABS: Hemoglobin 13.1 g/dl (14.0-18.0); Mean Corpuscular Hemoglobin 32.7 pg (25.0-34.0); Mean Corpuscular Hgb Conc 35.4 g/dL (32.0-36.0); Mean Corpuscular Volume 92.3 fL (80.0-100.0); Mean Platelet Volume 10.7 fL (9.4-12.4); Platelet Count 116 K/uL (130-400); RDW Coefficient of Variation 12.7 % (11.5-14.5); RDW Standard Deviation 42.7 fL (36.4-46.3); Red Blood Count 4.01 M/uL (4.70-6.10); White Blood Count 11.36 K/ul (4.8-10.8)
[2023-12-04 06:44] LABS: Basophils # (auto) 0.01 K/uL (0.00-0.20); Basophils % (auto) 0.1 %; Immature Granulocytes # (auto) 0.06 K/uL (0.01-0.20); Immature Granulocytes % (auto) 0.5 %; Lymphocytes # (auto) 0.51 K/uL (1.20-3.40); Lymphocytes % (auto) 4.5 %; Monocytes # (auto) 0.52 K/uL (0.11-0.59); Monocytes % (auto) 4.6 %; Neutrophils # (auto) 10.26 K/uL (1.40-6.50); Neutrophils % (auto) 90.3 %
--- NOTE | 2023-12-04 16:05 | Hospitalist Progress Note ---
Date of Service December 04, 2023 Assessment & Plan (1) COVID-19: Plan: Doing better, on room air, subjectively just does not quite feel strong enough to get home yet. Hopefully soon. (2) Hypoxia: Plan: Improved (3) BPH with urinary obstruction: Plan: hold tamsulosin 3 days after dose of Paxlovid; can resume 12/05 Monitor for urine retentionnone noted today (4) Hyperlipidemia: Plan: hold statin 3 days after dose of Paxlovid; can resume 12/05 (5) Hypertension: Plan: continue lisinopril (6) Arteriosclerosis of carotid artery: Plan: Continue aspirin Plan VTE Prophylaxis: Lovenox Diet: Regular Disposition stable on medical, anticipate home once he subjectively feels like he is doing well enough to get home okay Admission and Anticipated Discharge Date Admission Date: December 02, 2023 Subjective Most complaints are centered on having his room moved in the middle the night, and is frustrations about the cleanliness of his room and shower. He notes his breathing is better and is mostly off oxygen walking around without dyspnea. Whenever I ask him if he feels ready to go home, he notes that he is not yet strong enough. Review of Systems Review of Systems: All systems reviewed & are unremarkable except as noted in HPI & below Physical Exam Physical Exam: In general he is awake and alert pleasant no distress. Fatigued. Breathing unlabored no accessory muscle use good effort. 96% on room air whenever I see him. No focal neurodeficits. Results & Data Results & Data Vital Signs (Past 12 Hours) Vital Signs Temp Pulse Resp BP Pulse Ox O2 Del Method 12/04/23 15:12 97.9 F 63 16 170/85 H 95 Room Air 12/04/23 08:44 Room Air 12/04/23 07:09 97.7 F 62 16 150/73 H 94 Room Air PG Care Time/CCT Total # of Minutes Spent Total Time Spent with Patient: Total time spent is greater than 50% in coordination of care (as documented) at patient's floor/unit and/or counseling patient: Coding Level of Care Code 18637 SUB INP/OBS CARE 2/35MIN Diagnoses COVID-19 U07.1 Hypoxia R09.02 BPH with urinary obstruction N40.1; N13.8 Hyperlipidemia E78.5 Hypertension I10 Arteriosclerosis of carotid artery I65.29
--- NOTE | 2023-12-05 14:42 | Discharge Summary ---
Date of Service December 05, 2023 Admission HPI Per Admitting Provider 83 year old male with a past medical history of BPH, HLD, HTN, valvular heart disease, and carotid stenosis presenting with COVID-19. Symptoms started 4 days ago; productive cough, sore throat, body aches. Denies dyspnea, chest pain, fever/chills. Was seen at PCP this afternoon, tested positive for COVID-19, started on Paxlovid which he took this afternoon. Son has similar symptoms. 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 Increased coughing, concern for dyspnea this afternoon which prompted him to come to the ED. Found to be hypoxic to high 80s on arrival, now stable on 4L NC. Was given 6mg Decadron in the ED. CTA chest with emphysema, and concern for superimposed PNA. Admission Exam Per Admitting Provider Constitutional: well-appearing, no acute distress HEENT: NCAT, no conjunctival injection CV: regular rhythm, no murmur appreciated, extremities well-perfused, trace LE edema Resp: + wheezes with rales/rhonchi in lung bases, + increased work of breathing GI: soft, nondistended, nontender, BS normoactive MSK: no gross deformities appreciated Skin: warm, dry, no rash appreciated Neuro: alert, oriented, no focal neurologic deficit appreciated Principal Diagnosis COVID Discharge Exam General: Well-appearing, NAD Cardiovascular: RRR, no M/R/G Pulmonary: No distress, unlabored, minimally decreased aeration, no wheezing Extremities: Moving all extremities, no pedal edema Integumentary: No suspicious rash or lesion on exposed skin Neurologic: AAOx3, no focal deficits Psychiatric: Appropriate mood/affect Discharge Data Allergies Allergy/AdvReac Type Severity Reaction Status Date / Time No Known Allergies Allergy Verified 12/02/23 22:30 Consultations 12/02/23 22:21 ED Decision to Admit Stat Ordered Studies 12/02/23 20:43 CT angio chest PE protocol Stat Hospital Course (1) COVID-19: Clinically improving with improving energy and normal oxygenation, decision made to discontinue Paxlovid given improved status (2) Hypoxia: Improved (3) BPH with urinary obstruction: hold tamsulosin 3 days after dose of Paxlovid; can resume 12/05 (4) Hyperlipidemia: hold statin 3 days after dose of Paxlovid; can resume 12/05 (5) Hypertension: continue lisinopril (6) Arteriosclerosis of carotid artery: Continue aspirin Total Time Total Time Spent Total Time Spent (In Minutes): 30 Total Time Includes: Examination of the Patient, Discharge Planning and Medication Reconciliation Discharge Plan Discharge Items Patient Disposition: Home - Self-Care Reason For Visit: COVID Discharge Diagnosis: COVID Activity: Resume your previous activity Non-emergency contact: Primary Care Provider Call non-emergency contact if: your symptoms worsen Follow-up/Referrals: Efren Mckeon III, CRNP [Primary Care Provider] - 12/14/23 3:00 pm (SHANT MCKEON) Diet: Regular Addtl Attending Provider Instructions: You were admitted with a COVID illness with CT scans demonstrating no sign of blood clots in your lungs. Your oxygen improved while you were inpatient. You are being discharged back to home and gradually start resuming your normal activities as tolerated. Please ensure you have follow-up with your PCP. Otherwise continue your normal medications. Please call your PCP or return to the hospital if your symptoms worsen. Pending Studies at Discharge: No Stand-Alone Forms: My [facility] Medications and DC Order Prescriptions: Continued coenzyme Q10 400 mg capsule 1,200 mg PO QPM cholecalciferol (vitamin D3) 1,000 unit (25 mcg) tablet 1,000 units PO QPM benzonatate 200 mg capsule 200 mg PO TID PRN (Reason: cough) Qty: 30 0RF lisinopril 20 mg tablet 20 mg PO PM aspirin 81 mg Tablet,Delayed Release (Dr/Ec) 81 mg PO DAILY Discontinued omega-3 acid ethyl esters 1 gram capsule 1 cap PO QPM rosuvastatin 5 mg tablet 5 mg PO QPM Qty: 90 3RF Paxlovid 300 mg (150 mg x 2)-100 mg tablets,dose pack See Rx Instructions PO .COMPLEX Qty: 30 0RF Rx Instructions: ORDERED 12/02/23. take TWO 150 mg tablets of nirmatrelvir with ONE 100 mg tablet of ritonavir twice daily for 5 days PO tamsulosin 0.4 mg capsule 0.4 mg PO PM Discharge Orders: Discharge Order (Routine); Ordered 12/05/23 Ordered By: Jennifer Martinez Admission Data Admit Date/Time: 12/02/23 23:21 Attending Provider: Jennifer Martinez Admit Provider: Frances Boyer Primary Care Provider: Efren Mckeon III Other Providers: Maksim Trent Other Interventions: Discharge Summary Assessment (RN) Last Done: 12/05/23 15:14 Coding Level of Care Code 58090 INP/OBS DISCH >30 MIN Diagnoses COVID-19 U07.1 Hypoxia R09.02 BPH with urinary obstruction N40.1; N13.8 Hyperlipidemia E78.5 Hypertension I10 Arteriosclerosis of carotid artery I65.29
--- NOTE | 2023-12-07 12:23 | Coding Query ---
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 Please assist us with the question(s) below: Clinical Indicators: History & Physical: * Acute respiratory failure with hypoxia * Hypoxia secondary to COVID-19 * CTA chest with emphysema, and concern for superimposed PNA * 87% on room air * stable on 4L NC * VBG: pCO2 - 41/pO2 - 43/O2 saturation - 77.8 Discharge Summary: * Hypoxia: improved Coding Question(s): Without further mention of acute respiratory failure in the medical record, can you confirm if this condition was: * Ruled in * Ruled out * Other: (please specify) * Unable to determine Physician's Response(s): * ruled in Thank you Martha SANTOS
== END 2023-12-05 16:00 | disposition home or self-care (01) | DRG 177 ==
LOC: ED 19:23 → EDINP 23:21 → SUATTDRO 23:21 → 2E 12-03 01:58 → 3W 12-04 01:08

== ENCOUNTER 2023-12-11 20:57 | Observation (INO) ==
[2023-12-11 21:30] LABS: Basophils # (auto) 0.02 K/uL (0.00-0.20); Basophils % (auto) 0.2 %; Eosinophils % (auto) 3.6 %; Hematocrit (blood only) 39.7 % (42.0-52.0); Hemoglobin 13.7 g/dl (14.0-18.0); Immature Granulocytes % (auto) 4.6 %; Lymphocytes # (auto) 0.96 K/uL (1.20-3.40); Lymphocytes % (auto) 8.8 %; Mean Corpuscular Hemoglobin 32.5 pg (25.0-34.0); Mean Corpuscular Hgb Conc 34.5 g/dL (32.0-36.0); Mean Corpuscular Volume 94.3 fL (80.0-100.0); Mean Platelet Volume 9.3 fL (9.4-12.4); Monocytes # (auto) 0.98 K/uL (0.11-0.59); Monocytes % (auto) 8.9 %; Neutrophils # (auto) 8.11 K/uL (1.40-6.50); Neutrophils % (auto) 73.9 %; Platelet Count 201 K/uL (130-400); RDW Coefficient of Variation 12.7 % (11.5-14.5); RDW Standard Deviation 44.3 fL (36.4-46.3); Red Blood Count 4.21 M/uL (4.70-6.10); White Blood Count 10.97 K/ul (4.8-10.8)
[2023-12-11 22:03] LABS: Albumin Globulin Ratio 1.3 (0.9-2); Albumin Level 3.4 gm/dl (3.4-5.0); BUN Creatinine Ratio 37.2 (10-20); Bilirubin,Total 0.5 mg/dl (0.2-1.0); Calcium 8.7 mg/dl (8.6-10.3); Creatinine Clr Calc Pharmacy 41.5 ml/min; Est GFR (African American) 69.3 ml/min; Est GFR (Non-African American) 59.8 ml/min; Globulin 2.7 gm/dl (2.5-4.0); Potassium 4.4 mmol/L (3.5-5.1); Total Protein 6.1 gm/dl (6.0-8.3); Troponin I High Sensitivity 9.3 pg/ml (0-20)
[2023-12-11 22:14] LABS: INR 0.9 (0.9-1.1); Partial Thromboplastin Ratio 0.9; Partial Thromboplastin Time 25 Seconds (21-31); Prothrombin Time 10.4 Seconds (9.0-12.0)
[2023-12-11 22:14] LABS: Magnesium 2.1 mg/dl (1.7-2.4)
[2023-12-11] MEDS: SODIUM CHLORIDE 0.9% 500 ML IV ONE (22:15)
[2023-12-11] MEDS: ALBUT/IPRATROP 3MG/0.5MG NEB 3 ML VIAL NEB STA (22:16)
--- NOTE | 2023-12-11 23:17 | History & Physical Report ---
Date of Service December 11, 2023 Assessment & Plan (1) Ankle edema, bilateral: (2) Intractable hiccups: (3) BPH with urinary obstruction: (4) Hyperlipidemia: (5) Hypertension: Plan Bilateral lower extremity edema/hypertension- Given furosemide 20 mg IV from the ED Follow clinical response, to determine if additional treatment needs to be done in the morning Hold lisinopril for now Intractable hiccups/cough- Did improve somewhat while in the ED Baclofen 10 mg p.o. 3 times daily as needed Potential etiologies including but not limited to: GERD with esophagitis, fluid overload, recovering from recent COVID infection, recovering from secondary bacterial pneumonia CTA PE protocol notes atelectasis in both lower lobes, improving right lower lobe opacity, and mucosal thickening in the esophagus suggestive of esophagitis Hold lisinopril DuoNebs every 2 hours as needed GERD/esophagitis- Start pantoprazole 40 mg daily Recent COVID-19 infection with secondary bacterial pneumonia- Per hospital protocol, needs to be on COVID-19 precautions, as he has not reached day 11 post infection Does not require any treatment at this time History of Present Illness Chief Complaint: The patient presents to the ED with complaint of continuous hiccups making it very difficult to sleep that began after he was discharged on 12/05/23, and notes leg swelling that began and worsened after discharge Primary Care Provider: Efren Mckeon III, SHANT The patient is an 83-year-old male with a past medical history including BPH with LUTS, carotid artery atherosclerosis, hyperlipidemia, hypertension, nonrheumatic mitral valve insufficiency, vitamin D deficiency and recent admission from 12/02-12/05/2023 for COVID-19 infection with secondary bacterial pneumonia. The patient had started dosing of Paxlovid with a single dose prior to that admission, and then was maintained on dexamethasone and remdesivir during admission. His Paxlovid dosing was discontinued due to improved respiratory status upon discharge. The patient reports that he developed symptoms of hiccups shortly after discharge, and has had significant issues with being able to sleep, and has developed significant fatigue and lower extremity edema since he was discharged. Allergies Allergy/AdvReac Type Severity Reaction Status Date / Time No Known Allergies Allergy Verified 12/11/23 23:09 Home Medications Medication Instructions Recorded Confirmed Type cholecalciferol (vitamin D3) 25 1,000 units PO QPM 05/18/19 12/11/23 History mcg (1,000 unit) tablet coenzyme Q10 400 mg capsule 1,200 mg PO QPM 05/18/19 12/11/23 History lisinopril 20 mg tablet 20 mg PO PM 11/29/23 12/11/23 History aspirin 81 mg tablet,delayed 81 mg PO DAILY 12/02/23 12/11/23 History release benzonatate 200 mg capsule 200 mg PO TID PRN cough #30 caps 12/02/23 12/11/23 Rx Past Med/Surg History Medical History Hyperlipidemia Hypertension Surgical History S/P bilateral cataract extraction Hx of cataract extraction left History of colonoscopy H/O inguinal hernia repair Hx of tonsillectomy Family History Father Carotid artery stenosis Sister Asthma Mother Ovarian cancer Other No family history of adverse response to anesthesia Denies family history of Prostate cancer Myocardial infarction Breast cancer Colorectal cancer Social History Smoking Status: Former smoker Tobacco Type: Cigarettes Age Started Using Tobacco: 16; Age Quit Using Tobacco: 23; packs per day: 0.5; Cigarettes Per Day: 5; Second Hand Exposure: No; Do You Dip or Chew Tobacco: No; Hx Alcohol Use: No Hx Substance Use: No Preferred Language: Georgian Communication Ability: Effective Visual Impairment: No Limitations Hearing Ability: Normal Demand Manager Required: No Beliefs That Will Affect Care: None marital status: Current Living Situation: Spouse and Family Current Living Situation Comment: Lives at home with . He is her primary caregiver. Son assist. current occupational status: retired How many Children do You have: 2 Feels Safe at Home: Yes Childhood Exposure to Second-Hand Smoke: Yes Diet: regular Diet Comment: regular caffeine: Yes during the past year weight has: remained stable Dental Care, Regularly: Yes Physical Activity Frequency: Daily Seatbelt Use: always Sunscreen Use: No Do you think of yourself as: straight/heterosexual Assistive Devices: None Review of Systems Review of Systems: The patient denies chest pain, palpitations, sore throat, fevers, chills, sweats, nausea, vomiting, diarrhea , constipation, abdominal pain, pelvic pain, blood in urine or stool, dysuria, urinary frequency or urgency, lightheadedness, dizziness, headache, memory loss, loss of consciousness, rash, abnormal bruising or bleeding, imbalance, focal weakness, numbness or tingling in arms or legs, generalized arthralgias or myalgias, back or neck pain, or night sweats. The review of systems is otherwise negative other than for that already noted above, and at least 10 systems have been reviewed. Physical Exam Physical Exam: The patient is awake, alert and oriented 3, well developed and well nourished, normocephalic and atraumatic, lying in bed and in no acute distress. HEENT--PERRL, EOMI, mucous membranes and oropharynx normal. Neck--supple. No JVD. No bruits. Thyroid normal, trachea midline, no adenopathy. Heart--normal S1 and S2. No murmurs, rubs or gallops. Lungs--clear bilaterally, no respiratory distress, no accessory muscle use. Abdomen--normal bowel sounds and soft. Nontender. Nondistended, no hernias or masses, no organomegaly. Extremities--1+ bilateral pretibial pitting edema. Dermatologic--normal skin turgor, normal color, no abnormal lymph nodes, no rash. Neurologic--cranial nerves II through XII grossly intact. Rheumatologic--normal range of motion. Psychiatric--normal affect. Results & Data Results & Data Vital Signs (Past 12 Hours) Vital Signs Temp Pulse BP Pulse Ox 12/11/23 21:47 62 12/11/23 21:02 36.4 C L 70 184/77 H 98 Laboratory Results Laboratory Results WBC 10.97 K/ul (4.8-10.8) H 12/11/23 21:11 RBC 4.21 M/uL (4.70-6.10) L 12/11/23 21:11 Hgb 13.7 g/dl (14.0-18.0) L 12/11/23 21:11 Hct 39.7 % (42.0-52.0) L 12/11/23 21:11 MCV 94.3 fL (80.0-100.0) 12/11/23 21:11 MCH 32.5 pg (25.0-34.0) 12/11/23 21:11 MCHC 34.5 g/dL (32.0-36.0) 12/11/23 21:11 RDW Std Deviation 44.3 fL (36.4-46.3) 12/11/23 21:11 RDW Coeff of Luis 12.7 % (11.5-14.5) 12/11/23 21:11 Plt Count 201 K/uL (130-400) 12/11/23 21:11 MPV 9.3 fL (9.4-12.4) L 12/11/23 21:11 Immature Gran % (Auto) 4.6 % 12/11/23 21:11 Neut % (Auto) 73.9 % 12/11/23 21:11 Lymph % (Auto) 8.8 % 12/11/23 21:11 Ray % (Auto) 8.9 % 12/11/23 21:11 Eos % (Auto) 3.6 % 12/11/23 21:11 Baso % (Auto) 0.2 % 12/11/23 21:11 Neut # (Auto) 8.11 K/uL (1.40-6.50) H 12/11/23 21:11 Lymph # (Auto) 0.96 K/uL (1.20-3.40) L 12/11/23 21:11 Ray # (Auto) 0.98 K/uL (0.11-0.59) H 12/11/23 21:11 Eos # (Auto) 0.40 K/uL (0.00-0.50) 12/11/23 21:11 Baso # (Auto) 0.02 K/uL (0.00-0.20) 12/11/23 21:11 Immature Gran # (Auto) 0.50 K/uL (0.01-0.20) H 12/11/23 21:11 PT 10.4 Seconds (9.0-12.0) 12/11/23 21:42 INR 0.9 (0.9-1.1) 12/11/23 21:42 APTT 25 Seconds (21-31) 12/11/23 21:42 PTT Ratio 0.9 12/11/23 21:42 Sodium 137 mmol/L (136-145) 12/11/23 21:11 Potassium 4.4 mmol/L (3.5-5.1) 12/11/23 21:11 Chloride 107 mmol/L (98-107) 12/11/23 21:11 Carbon Dioxide 26 mmol/L (21-32) 12/11/23 21:11 Anion Gap 4 (3-11) 12/11/23 21:11 BUN 42 mg/dl (6-23) H 12/11/23 21:11 Creatinine 1.13 mg/dl (0.6-1.4) 12/11/23 21:11 Est Cr Clr Drug Dosing 41.5 ml/min 12/11/23 21:11 Est GFR ( Amer) 69.3 ml/min 12/11/23 21:11 Est GFR (Non-Af Amer) 59.8 ml/min 12/11/23 21:11 BUN/Creatinine Ratio 37.2 (10-20) H 12/11/23 21:11 Glucose 112 mg/dl (70-99(Fasting)) H 12/11/23 21:11 Lactate 1.2 mmol/L (0.4-2.0) 12/12/23 00:44 Calcium 8.7 mg/dl (8.6-10.3) 12/11/23 21:11 Magnesium 2.1 mg/dl (1.7-2.4) 12/11/23 21:11 Total Bilirubin 0.5 mg/dl (0.2-1.0) D 12/11/23 21:11 AST 18 U/L (13-39) 12/11/23 21:11 ALT 18 U/L (7-52) 12/11/23 21:11 Alkaline Phosphatase 45 U/L (34-104) 12/11/23 21:11 Troponin I High Sens 9.3 pg/ml (0-20) 12/11/23 21:11 B-Natriuretic Peptide 46 pg/ml (0-100) 12/11/23 21:11 Total Protein 6.1 gm/dl (6.0-8.3) 12/11/23 21:11 Albumin 3.4 gm/dl (3.4-5.0) 12/11/23 21:11 Globulin 2.7 gm/dl (2.5-4.0) 12/11/23 21:11 Albumin/Globulin Ratio 1.3 (0.9-2) 12/11/23 21:11 Impressions Chest CTA 12/11/23 21:49 Exam(s): CTA CHEST IV Amt: 96 ml opti 320 EXAM: CT Angiography Chest With Intravenous Contrast CLINICAL HISTORY: Reason for exam: PE. TECHNIQUE: Axial computed tomographic angiography images of the chest with intravenous contrast. CTDI is 28.61 mGy and DLP is 552.04 mGy-cm. Automated exposure control was utilized for the study. A dose lowering technique was utilized adhering to the principles of ALARA. MIP reconstructed images were created and reviewed. COMPARISON: CT 12/02/2023 FINDINGS: Pulmonary arteries: No pulmonary embolism. Aorta: No acute findings. Normal caliber. No dissection. Lungs: Emphysematous changes. Atelectasis in the lower lobes. Improving airspace opacities in the right lower lobe. Pleural space: Unremarkable. Heart: Unremarkable. Mediastinum: Mild mucosal thickening in the esophagus suggestive of esophagitis. Bones/joints: No acute fracture. Soft tissues: Unremarkable. Lymph nodes: Unremarkable. IMPRESSION: 1. No pulmonary embolism. 2. Emphysematous changes. Atelectasis in the lower lobes. Improving airspace opacities in the right lower lobe. 3. Mild mucosal thickening in the esophagus suggestive of esophagitis. Electronically signed by: Don Bueno MD 12/12/23 00:09 AM Code Status & VTE Plan Code Status Full code VTE Prophylaxis Plan VTE Prophylaxis will be ordered: Yes PG Care Time/CCT Total # of Minutes Spent Total Time Spent with Patient: Total time spent is greater than 50% in coordination of care (as documented) at patient's floor/unit and/or counseling patient: Coding Level of Care Code 03879 INT INP/OBS CARE 3/75MIN Diagnoses Ankle edema, bilateral M25.471; M25.472 Intractable hiccups R06.6 BPH with urinary obstruction N40.1; N13.8 Hyperlipidemia E78.5 Hypertension I10
[2023-12-11] MEDS: OPTIRAY 320 125ml IV ONE (23:35)
[2023-12-11] MEDS: FUROSEMIDE INJ 20 MG/2 ML VIAL IV ONE (23:42)
--- NOTE | 2023-12-12 00:09 | Emergency Department Note ---
History of Present Illness General Chief complaint: Cough Stated complaint: COUGH, CHEST GUTIERREZ, NON STOP HICCUPS, POOR SLEEP Time Seen by Provider: 12/11/23 21:31 History of Present Illness This 83-year-old male recently discharged on hospital for COVID presents ER complaining of cough, congestion, dyspnea and hiccups unable to sleep. Patient denies fever, chills, abdominal pain, chest pain, headache, neck stiffness. Home Medications Medication Instructions Recorded Confirmed Type cholecalciferol (vitamin D3) 25 1,000 units PO QPM 05/18/19 12/11/23 History mcg (1,000 unit) tablet coenzyme Q10 400 mg capsule 1,200 mg PO QPM 05/18/19 12/11/23 History lisinopril 20 mg tablet 20 mg PO PM 11/29/23 12/11/23 History aspirin 81 mg tablet,delayed 81 mg PO DAILY 12/02/23 12/11/23 History release benzonatate 200 mg capsule 200 mg PO TID PRN cough #30 caps 12/02/23 12/11/23 Rx Allergies Allergy/AdvReac Type Severity Reaction Status Date / Time No Known Allergies Allergy Verified 12/11/23 23:09 Past Med/Surg History Medical History Hyperlipidemia Hypertension Surgical History S/P bilateral cataract extraction Hx of cataract extraction left History of colonoscopy H/O inguinal hernia repair Hx of tonsillectomy Family History Father Carotid artery stenosis Sister Asthma Mother Ovarian cancer Other No family history of adverse response to anesthesia Denies family history of Prostate cancer Myocardial infarction Breast cancer Colorectal cancer Social History Smoking Status: Former smoker Tobacco Type: Cigarettes Age Started Using Tobacco: 16; Age Quit Using Tobacco: 23; packs per day: 0.5; Cigarettes Per Day: 5; Second Hand Exposure: No; Do You Dip or Chew Tobacco: No; Hx Alcohol Use: No Hx Substance Use: No Preferred Language: Kiswahili Communication Ability: Effective Visual Impairment: No Limitations Hearing Ability: Normal Bottom Worker Required: No Beliefs That Will Affect Care: None marital status: Current Living Situation: Spouse and Family Current Living Situation Comment: Lives at home with . He is her primary caregiver. Son assist. current occupational status: retired How many Children do You have: 2 Feels Safe at Home: Yes Childhood Exposure to Second-Hand Smoke: Yes Diet: regular Diet Comment: regular caffeine: Yes during the past year weight has: remained stable Dental Care, Regularly: Yes Physical Activity Frequency: Daily Seatbelt Use: always Sunscreen Use: No Do you think of yourself as: straight/heterosexual Assistive Devices: None Review of Systems A total of 10 systems reviewed and were otherwise negative Physical Exam Vital Signs Vital Signs - 24 hr 12/11/23 21:02 12/11/23 21:47 12/11/23 23:00 Temperature 36.4 C L Temperature Source Temporal Artery Scan Pulse Rate 70 62 Pulse Rate [Apical] 81 Respiratory Rate 21 Respiratory Effort / Characteristics Non-Labored Respiratory Depth Normal Respiratory Pattern Regular Blood Pressure 184/77 H Blood Pressure [Left Arm] 165/86 H Blood Pressure Mean 112 Blood Pressure Mean [Left Arm] 112 Pulse Oximetry 98 92 Oxygen Delivery Method Room Air Sepsis Recent Fever Within 48 Hours No Sepsis New/Unexplained Change in Mental Status No Sepsis Action Taken by Nursing No Action Required VITALS: Vitals are noted on the nurse's note and reviewed by myself. Vital signs stable. GENERAL: Pleasant gentleman, in no acute distress, nondiaphoretic, well- developed well-nourished. SKIN: Capillary reflex less than 2 seconds. HEENT: Normocephalic. PERRLA. EOMI. Nares patent. Mucous membranes moist. Neck is supple without nuchal rigidity. HEART: Regular rate and rhythm LUNGS: Mild diffuse end expiratory wheezes, without rales or rhonchi. No retractions or accessory muscle use. ABDOMEN: Positive bowel sounds x 4. Normal tympanic percussion. Soft, nontender, without masses or organomegaly. Villar sign negative. No guarding or rebound tenderness. no CVA tenderness MUSCULOSKELETAL: No gross musculoskeletal defects. NEURO: Patient was alert and oriented to person place and time. No focal neurological deficits. Course Administered Medications Discontinued Medications Albuterol (Albut/Ipratrop 3mg/0.5mg Neb 3 Ml Vial) 3 ml NEB NOW STA; Protocol Stop: 12/11/23 21:50 Last Admin: 12/11/23 22:16 Dose: 3 ml Documented By: MAIKEL Furosemide (Furosemide Inj 20 Mg/2 Ml Vial) 20 mg IV ONE ONE Stop: 12/11/23 22:52 Last Admin: 12/11/23 23:42 Dose: 20 mg Documented By: PATRICK Sodium Chloride (Nss) 500 mls @ 999 mls/hr IV .Q31M ONE Stop: 12/11/23 22:19 Last Infusion: 12/11/23 22:55 Dose: Infused Documented By: Admin: 12/11/23 22:15 Dose: 999 mls/hr Documented By: MAIKEL Ioversol (Optiray 320 125ml) 96 ml IV ONCE ONE Stop: 12/11/23 23:36 Last Admin: 12/11/23 23:35 Dose: 96 ml Documented By: GORDON Medical Decision Making Medical Records Attestation: I reviewed the patient's medical records. Home Medications Current Medication List: was personally reviewed by me Laboratory Data Attestation: I reviewed the patient's lab results. 12/11/23 21:11 12/11/23 21:11 Lab Results 12/11/23 12/11/23 Range/Units 21:11 21:42 WBC 10.97 H (4.8-10.8) K/ul RBC 4.21 L (4.70-6.10) M/uL Hgb 13.7 L (14.0-18.0) g/dl Hct 39.7 L (42.0-52.0) % MCV 94.3 (80.0-100.0) fL MCH 32.5 (25.0-34.0) pg MCHC 34.5 (32.0-36.0) g/dL RDW Std Deviation 44.3 (36.4-46.3) fL RDW Coeff of Luis 12.7 (11.5-14.5) % Plt Count 201 (130-400) K/uL MPV 9.3 L (9.4-12.4) fL Immature Gran % (Auto) 4.6 % Neut % (Auto) 73.9 % Lymph % (Auto) 8.8 % [place] % (Auto) 8.9 % Eos % (Auto) 3.6 % Baso % (Auto) 0.2 % Neut # (Auto) 8.11 H (1.40-6.50) K/uL Lymph # (Auto) 0.96 L (1.20-3.40) K/uL [place] # (Auto) 0.98 H (0.11-0.59) K/uL Eos # (Auto) 0.40 (0.00-0.50) K/uL Baso # (Auto) 0.02 (0.00-0.20) K/uL Immature Gran # (Auto) 0.50 H (0.01-0.20) K/uL PT Cancelled 10.4 INR Cancelled 0.9 APTT Cancelled 25 PTT Ratio Cancelled 0.9 Sodium 137 (136-145) mmol/L Potassium 4.4 (3.5-5.1) mmol/L Chloride 107 (98-107) mmol/L Carbon Dioxide 26 (21-32) mmol/L Anion Gap 4 (3-11) BUN 42 H (6-23) mg/dl Creatinine 1.13 (0.6-1.4) mg/dl Est Cr Clr Drug Dosing 41.5 ml/min Est GFR ( Amer) 69.3 ml/min Est GFR (Non-Af Amer) 59.8 ml/min BUN/Creatinine Ratio 37.2 H (10-20) Glucose 112 H (70-99(Fasting)) mg/dl Calcium 8.7 (8.6-10.3) mg/dl Magnesium 2.1 (1.7-2.4) mg/dl Total Bilirubin 0.5 D (0.2-1.0) mg/dl AST 18 (13-39) U/L ALT 18 (7-52) U/L Alkaline Phosphatase 45 (34-104) U/L Troponin I High Sens 9.3 (0-20) pg/ml B-Natriuretic Peptide 46 (0-100) pg/ml Total Protein 6.1 (6.0-8.3) gm/dl Albumin 3.4 (3.4-5.0) gm/dl Globulin 2.7 (2.5-4.0) gm/dl Albumin/Globulin Ratio 1.3 (0.9-2) Imaging Data Attestation: I personally reviewed and interpreted this imaging study as follows: Radiologist's Impression: Chest CTA 12/11/23 21:49 Exam(s): CTA CHEST IV Amt: 96 ml opti 320 EXAM: CT Angiography Chest With Intravenous Contrast CLINICAL HISTORY: Reason for exam: PE. TECHNIQUE: Axial computed tomographic angiography images of the chest with intravenous contrast. CTDI is 28.61 mGy and DLP is 552.04 mGy-cm. Automated exposure control was utilized for the study. A dose lowering technique was utilized adhering to the principles of ALARA. MIP reconstructed images were created and reviewed. COMPARISON: CT 12/02/2023 FINDINGS: Pulmonary arteries: No pulmonary embolism. Aorta: No acute findings. Normal caliber. No dissection. Lungs: Emphysematous changes. Atelectasis in the lower lobes. Improving airspace opacities in the right lower lobe. Pleural space: Unremarkable. Heart: Unremarkable. Mediastinum: Mild mucosal thickening in the esophagus suggestive of esophagitis. Bones/joints: No acute fracture. Soft tissues: Unremarkable. Lymph nodes: Unremarkable. IMPRESSION: 1. No pulmonary embolism. 2. Emphysematous changes. Atelectasis in the lower lobes. Improving airspace opacities in the right lower lobe. 3. Mild mucosal thickening in the esophagus suggestive of esophagitis. Electronically signed by: Don Bueno MD 12/12/23 00:09 AM MDM Narrative Prior records/ancillary studies reviewed. Triage Nursing notes reviewed. Additional history obtained from the family. The patient's history was concerning for respiratory difficulties. Differential diagnosis: Etiologies such as infections, reactive airway disease, pneumonia, pneumothorax, COPD, CHF, cardiac ischemia, pulmonary embolism, musculoskeletal, gastrointestinal, as well as others were entertained. Physical examination: As above. ER treatment provided: An order was placed for continuous cardiac monitoring. The monitor shows a rate of 60-100 with a sinus rhythm per my interpretation. Nebulizer, Lasix On reassessment the patient felt better. Diagnostic interpretation by me: The electrocardiogram was ordered for SOB. ECG: Normal sinus, normal intervals, left axis, no acute ST-T wave changes, rate 71. Impression normal sinus rhythm left axis deviation independently interpreted by myself The labs Independently Interpreted by myself revealed mild leukocytosis, mild anemia Negative troponin Imaging studies: Chest x-ray with no acute consolidation, pneumothorax or free air per my independent interpretation CTA as above. No PE Consultation: A consultation was placed with the hospitalist. The case was discussed and diagnostics were reviewed. The patient was evaluated in the ER for further treatment. This appears to be consistent with bronchitis. Patient did not feel comfortable going home. Medicine was consulted and case was discussed. He will be admitted to the medical service for further evaluation and workup. By the evaluation outlined above emergent etiologies such as CHF, cardiac ischemia, pulmonary embolism, reactive airway disease, pneumonia, pneumothorax, musculoskeletal, serious bacterial infections, as well as others were deemed relatively unlikely. The pt informed about the findings as listed above. All questions were answered and pleased with the treatment. The chart was completed utilizing [employer] Speech voice recognition software. Grammatical errors, random word insertions, pronoun errors, and incomplete sentences are an occassional consequence of this system due to software limitations, ambient noise, and hardware issues. Any formal questions or concerns about the content, text, or information contained within the body of this dictation should be directly addressed to the physician customer service assistant for clarification. Impression & Plan Acute bronchitis, CHF (congestive heart failure) Discharge Plan Visit Data Chief Complaint: Cough Stated Complaint: COUGH, CHEST GUTIERREZ, NON STOP HICCUPS, POOR SLEEP ED Provider: Billy Baum ED Midlevel Provider: Damaris Tobias Discharge Problem: Acute bronchitis, CHF (congestive heart failure) Patient Disposition: Admitted As Inpatient Condition: Good Discharge Instructions Interventions: ED Discharge Assessment Last Done: 12/12/23 00:15 Discharge Problem: Acute bronchitis Qualifiers: Bronchitis organism: unspecified organism Qualified Code(s): J20.9 - Acute bronchitis, unspecified
[2023-12-12] MEDS ORDERED: BACLOFEN 10 MG TAB PO PRN (00:15)
[2023-12-12] MEDS ORDERED: ALBUT/IPRATROP 3MG/0.5MG NEB 3 ML VIAL NEB PRN (00:15)
[2023-12-12] MEDS ORDERED: ONDANSETRON INJ 2 MG/ML 2 ML VIAL IV PRN (00:15)
[2023-12-12] MEDS ORDERED: ACETAMINOPHEN 325 MG TAB PO PRN (00:15)
[2023-12-12 05:56] LABS: Basophils # (auto) 0.02 K/uL (0.00-0.20); Basophils % (auto) 0.2 %; Eosinophils # (auto) 0.28 K/uL (0.00-0.50); Hematocrit (blood only) 36.3 % (42.0-52.0); Hemoglobin 12.9 g/dl (14.0-18.0); Immature Granulocytes # (auto) 0.42 K/uL (0.01-0.20); Immature Granulocytes % (auto) 4.5 %; Lymphocytes # (auto) 0.85 K/uL (1.20-3.40); Lymphocytes % (auto) 9.1 %; Mean Corpuscular Hemoglobin 32.3 pg (25.0-34.0); Mean Corpuscular Hgb Conc 35.5 g/dL (32.0-36.0); Mean Platelet Volume 9.3 fL (9.4-12.4); Monocytes # (auto) 1.02 K/uL (0.11-0.59); Monocytes % (auto) 10.9 %; Neutrophils # (auto) 6.73 K/uL (1.40-6.50); Neutrophils % (auto) 72.3 %; Platelet Count 194 K/uL (130-400); RDW Coefficient of Variation 12.7 % (11.5-14.5); RDW Standard Deviation 42.2 fL (36.4-46.3); Red Blood Count 3.99 M/uL (4.70-6.10); White Blood Count 9.32 K/ul (4.8-10.8)
[2023-12-12 06:13] LABS: Albumin Level 3.2 gm/dl (3.4-5.0); BUN Creatinine Ratio 35.4 (10-20); Calcium 8.6 mg/dl (8.6-10.3); Creatinine Clr Calc Pharmacy 48.8 ml/min; Est GFR (African American) 84.4 ml/min; Est GFR (Non-African American) 72.8 ml/min; Phosphorus 3.3 mg/dl (2.5-4.9)
[2023-12-12 06:19] LABS: Troponin I High Sensitivity 9.9 pg/ml (0-20)
--- NOTE | 2023-12-12 07:17 | XRay Report ---
XR chest 1V not portable HISTORY: Chest pain, nonspecific COMPARISON: Chest 12/02/2023. FINDINGS: No pneumothorax. No pleural effusions. The heart is normal in size. Emphysema again noted. Bibasilar interstitial thickening favors vascular crowding. Improved aeration within the bibasilar op acities. No focal lung consolidations identified. No evidence for pulmonary edema. Punctate calcified granuloma within the right upper lobe. IMPRESSION: 1. Improved aeration within the bibasilar opacities. 2. Emphysema. ACT 112: Negative or not required by law. Electronically signed by: Aldair Barakat M.D. 12/12/2023 7:16 AM
[2023-12-12] MEDS: ASPIRIN 81 MG ECTAB PO SCH (08:35)
[2023-12-12] MEDS: PANTOprazole 40 MG TAB PO SCH (08:35)
--- NOTE | 2023-12-12 09:51 | Hospitalist Progress Note ---
Date of Service December 12, 2023 Assessment & Plan (1) Ankle edema, bilateral: (2) Intractable hiccups: (3) BPH with urinary obstruction: (4) Hyperlipidemia: (5) Hypertension: Plan Bilateral lower extremity edema/hypertension- BNP 49, no evidence of congestive heart failure, although no recent 2D echo. Will obtain 2D echo Given furosemide 20 mg IV from the ED Hold lisinopril for now Intractable hiccups/cough- Did improve somewhat while in the ED Baclofen 10 mg p.o. 3 times daily as needed, will add IM Thorazine 25 mg Potential etiologies including but not limited to: GERD with esophagitis, fluid overload, recovering from recent COVID infection, recovering from secondary samantha terial pneumonia CTA PE protocol notes atelectasis in both lower lobes, improving right lower lobe opacity, and mucosal thickening in the esophagus suggestive of esophagitis Hold lisinopril DuoNebs every 2 hours as needed GERD/esophagitis- Start pantoprazole 40 mg daily Recent COVID-19 infection with secondary bacterial pneumonia- Per hospital protocol, needs to be on COVID-19 precautions, as he has not reached day 11 post infection Does not require any treatment at this time Continue hospitalization CODE STATUS full code Admission and Anticipated Discharge Date Admission Date: December 11, 2023 Subjective Patient seen and examined, although his hiccups have improved, he still has some Review of Systems Review of Systems: All systems reviewed are negative, apart from the ones contained in the history. Physical Exam Physical Exam: The patient is awake, alert and oriented 3, well developed and well nourished, normocephalic and atraumatic, lying in bed and in no acute distress. HEENT--PERRL, EOMI, mucous membranes and oropharynx mildly dry Neck--supple. No JVD. No bruits. Thyroid normal, trachea midline, no adenopathy. Heart--normal S1 and S2. No murmurs, rubs or gallops. Lungs--clear bilaterally, no respiratory distress, no accessory muscle use. Abdomen--normal bowel sounds and soft. Extremities--no cyanosis or clubbing. No edema. Dermatologic--normal skin turgor, normal color, no abnormal lymph nodes, no rash. Neurologic--cranial nerves II through XII grossly intact. Rheumatologic--normal range of motion. Psychiatric--normal affect. Results & Data Results & Data Vital Signs (Past 12 Hours) Vital Signs Pulse Pulse Resp BP Pulse Ox Pulse Ox O2 Del Method 12/12/23 09:23 95 12/12/23 08:34 60 23 113/62 94 Room Air 12/12/23 07:05 61 12/12/23 06:15 58 L 24 114/72 95 Room Air 12/12/23 04:06 60 24 121/74 96 Room Air 12/12/23 01:51 68 23 120/74 97 Room Air 12/12/23 01:42 65 22 120/74 97 Room Air 12/11/23 23:00 81 21 165/86 H 92 Room Air O2 Del Method 12/12/23 09:23 Room Air 12/12/23 08:34 12/12/23 07:05 12/12/23 06:15 12/12/23 04:06 12/12/23 01:51 12/12/23 01:42 12/11/23 23:00 PG Care Time/CCT Total # of Minutes Spent Total Time Spent with Patient: Total time spent is greater than 50% in coordination of care (as documented) at patient's floor/unit and/or counseling patient: Coding Level of Care Code 69183 SUB INP/OBS CARE 2/35MIN Diagnoses Ankle edema, bilateral M25.471; M25.472 Intractable hiccups R06.6 BPH with urinary obstruction N40.1; N13.8 Hyperlipidemia E78.5 Hypertension I10 Time Spent (min) 35
[2023-12-12] MEDS: chlorproMAZINE HCL 25 MG/ML AMP IM ONE (10:12)
--- NOTE | 2023-12-12 14:54 | XCELERA ---
[id number]
[2023-12-12] MEDS: CHOLECALCIFEROL 25 MCG (1000 UNITS) TAB PO SCH (21:47)
[2023-12-13 07:37] LABS: Basophils # (auto) 0.01 K/uL (0.00-0.20); Basophils % (auto) 0.1 %; Eosinophils # (auto) 0.34 K/uL (0.00-0.50); Eosinophils % (auto) 4.2 %; Hematocrit (blood only) 34.8 % (42.0-52.0); Hemoglobin 12.1 g/dl (14.0-18.0); Immature Granulocytes # (auto) 0.19 K/uL (0.01-0.20); Immature Granulocytes % (auto) 2.3 %; Lymphocytes # (auto) 1.03 K/uL (1.20-3.40); Lymphocytes % (auto) 12.6 %; Mean Corpuscular Hemoglobin 32.3 pg (25.0-34.0); Mean Corpuscular Hgb Conc 34.8 g/dL (32.0-36.0); Mean Corpuscular Volume 92.8 fL (80.0-100.0); Mean Platelet Volume 9.3 fL (9.4-12.4); Neutrophils # (auto) 5.69 K/uL (1.40-6.50); Neutrophils % (auto) 69.8 %; Platelet Count 172 K/uL (130-400); RDW Coefficient of Variation 12.9 % (11.5-14.5); RDW Standard Deviation 43.4 fL (36.4-46.3); Red Blood Count 3.75 M/uL (4.70-6.10); White Blood Count 8.16 K/ul (4.8-10.8)
[2023-12-13 08:03] LABS: BUN Creatinine Ratio 33.3 (10-20); Calcium 8.4 mg/dl (8.6-10.3); Creatinine Clr Calc Pharmacy 41.1 ml/min; Est GFR (African American) 68.5 ml/min; Est GFR (Non-African American) 59.1 ml/min; Phosphorus 3.1 mg/dl (2.5-4.9); Potassium 4.3 mmol/L (3.5-5.1)
[2023-12-13] MEDS: chlorproMAZINE HCL 25 MG/ML AMP IM ONE (10:18)
--- NOTE | 2023-12-13 11:12 | Discharge Summary ---
Date of Service December 13, 2023 Admission HPI Per Admitting Provider The patient is an 83-year-old male with a past medical history including BPH with LUTS, carotid artery atherosclerosis, hyperlipidemia, hypertension, nonrheumatic mitral valve insufficiency, vitamin D deficiency and recent admission from 12/02-12/05/2023 for COVID-19 infection with secondary bacterial pneumonia. The patient had started dosing of Paxlovid with a single dose prior to that admission, and then was maintained on dexamethasone and remdesivir during admission. His Paxlovid dosing was discontinued due to improved respiratory status upon discharge. The patient reports that he developed symptoms of hiccups shortly after discharge, and has had significant issues with being able to sleep, and has developed significant fatigue and lower extremity edema since he was discharged. Principal Diagnosis Hiccups Discharge Exam The patient is awake, alert and oriented 3, well developed and well nourished, normocephalic and atraumatic, lying in bed and in no acute distress. HEENT--PERRL, EOMI, mucous membranes and oropharynx mildly dry Neck--supple. No JVD. No bruits. Thyroid normal, trachea midline, no a denopathy. Heart--normal S1 and S2. No murmurs, rubs or gallops. Lungs--clear bilaterally, no respiratory distress, no accessory muscle use. Abdomen--normal bowel sounds and soft. Extremities--no cyanosis or clubbing. No edema. Dermatologic--normal skin turgor, normal color, no abnormal lymph nodes, no rash. Neurologic--cranial nerves II through XII grossly intact. Rheumatologic--normal range of motion. Psychiatric--normal affect. Discharge Data Allergies Allergy/AdvReac Type Severity Reaction Status Date / Time No Known Allergies Allergy Verified 12/11/23 23:09 Consultations 12/11/23 23:06 ED Decision to Admit Stat Ordered Studies 12/11/23 21:49 CT angio chest PE protocol Stat Hospital Course (1) Ankle edema, bilateral: (2) Intractable hiccups: (3) BPH with urinary obstruction: (4) Hyperlipidemia: (5) Hypertension: Plan Bilateral lower extremity edema/hypertension- BNP 49, no evidence of congestive heart failure, although no recent 2D echo. Will obtain 2D echo Given furosemide 20 mg IV from the ED Hold lisinopril for now Intractable hiccups/cough- Did improve somewhat while in the ED Baclofen 10 mg p.o. 3 times daily as needed, will add IM Thorazine 25 mg, which seem to have helped. Potential etiologies including but not limited to: GERD with esophagitis, fluid overload, recovering from recent COVID infection, recovering from secondary bacterial pneumonia CTA PE protocol notes atelectasis in both lower lobes, improving right lower lobe opacity, and mucosal thickening in the esophagus suggestive of esophagitis Hold lisinopril DuoNebs every 2 hours as needed GERD/esophagitis- Start pantoprazole 40 mg daily Recent COVID-19 infection with secondary bacterial pneumonia- Per hospital protocol, needs to be on COVID-19 precautions, as he has not reached day 11 post infection Does not require any treatment at this time Continue hospitalization CODE STATUS full code Total Time Total Time Spent Total Time Spent (In Minutes): 35 Discharge Plan Discharge Items Patient Disposition: Home - Self-Care Reason For Visit: COPD EX, EDEMA Discharge Diagnosis: Hiccups Condition on Discharge: Good Activity: Resume your previous activity Non-emergency contact: Primary Care Provider Call non-emergency contact if: you have any medication questions Follow-up/Referrals: Efren Mckeon III, CRNP [Primary Care Provider] - Diet: Regular Addtl Attending Provider Instructions: Please make appointment to follow-up with her regular PCP Pending Studies at Discharge: No Stand-Alone Forms: My [employer], Smoking Cessation Medications and DC Order Prescriptions: Continued coenzyme Q10 400 mg capsule 1,200 mg PO QPM cholecalciferol (vitamin D3) 1,000 unit (25 mcg) tablet 1,000 units PO QPM benzonatate 200 mg capsule 200 mg PO TID PRN (Reason: cough) Qty: 30 0RF lisinopril 20 mg tablet 20 mg PO PM aspirin 81 mg Tablet,Delayed Release (Dr/Ec) 81 mg PO DAILY Discharge Orders: Discharge Order (Routine); Ordered 12/13/23 Ordered By: Alexandr Low Admission Data Admit Date/Time: 12/11/23 23:16 Attending Provider: Aleaxndr Low Admit Provider: Maksim Trent Primary Care Provider: Efren Mckeon III Other Providers: Maksim Trent Coding Level of Care Code 80136 INP/OBS DISCH >30 MIN Diagnoses Ankle edema, bilateral M25.471; M25.472 Intractable hiccups R06.6 BPH with urinary obstruction N40.1; N13.8 Hyperlipidemia E78.5 Hypertension I10 Time Spent (min) 35
--- NOTE | 2023-12-14 14:38 | Electrocardiogram Report ---
Test Reason : Blood Pressure : / mmHG Vent. Rate : 071 BPM Atrial Rate : 071 BPM P-R Int : 132 ms QRS Dur : 084 ms QT Int : 386 ms P-R-T Axes : 048 -49 049 degrees QTc Int : 419 ms Poor data quality, interpretation may be adversely affected Normal sinus rhythm Left axis deviation Abnormal ECG When compared with ECG of 02-DEC-2023 20:47, Nonspecific T wave abnormality, worse in Lateral leads Confirmed by Sujit Berman ([id number]) on 12/14/2023 2:38:06 PM Referred By: REFERRED SELF Confirmed By:Sujit Berman
== END 2023-12-13 12:48 | disposition home or self-care (01) ==
LOC: ED 20:57 → EDINP 20:57 → SUATTDRO 23:16 → 3W 12-12 00:15